=== PATIENT | female | born 1960 | race Caucasian/White ===

== ENCOUNTER 2021-03-03 08:37 | Day surgery (SDC) | payer OTHER ==
[2021-03-01 08:38] LABS: COVID AG,FIA SOURCE NASOPHARYNGEAL
[2021-03-01 08:42] LABS: BASOPHILS % (AUTO) 0.6 % (0.0-2.0); EOSINOPHILS % (AUTO) 3.1 % (1.0-6.0); HEMOGLOBIN 14.2 g/dL (12.0-16.0); LYMPHOCYTES % (AUTO) 31.3 % (22.0-44.0); MEAN CORPUSCULAR HEMOGLOBIN 29.3 pg (26.0-34.0); MEAN CORPUSCULAR HGB CONC 33.1 G/dL (31.0-37.0); MEAN CORPUSCULAR VOLUME 89 fL (80-100); MONOCYTES # (AUTO) 0.4 K/uL (0.1-1.0); MONOCYTES % (AUTO) 6.5 % (2.0-9.0); NEUTROPHILS # (AUTO) 3.8 K/uL (1.8-7.7); NEUTROPHILS % (AUTO) 58.5 % (40.0-70.0); PLATELET COUNT (AUTO) 185 K/uL (150-450); RED BLOOD CELL COUNT(AUTO) 4.86 MIL/uL (4.00-5.20); RED CELL DISTRIBUTION WIDTH 13.8 % (11.5-14.5)
[2021-03-01 08:55] LABS: ANION GAP 6 mmol/L (8-16); CALCIUM, TOTAL 9.4 mg/dL (8.8-10.5); CARBON DIOXIDE 27 mmol/L (22-29); CHLORIDE 105 mmol/L (98-107); CREATININE 0.89 mg/dL (0.60-1.30); GLOMERULAR FILTR. RATE CALC > 60 mL/min (>60); GLUCOSE,RANDOM 98 mg/dL (70-110); POTASSIUM 4.6 mmol/L (3.5-5.1); PROTHROMBIN TIME 10.2 SEC (9.4-11.6); SODIUM SERUM 138 mmol/L (136-145); UREA NITROGEN, BLOOD 20 mg/dL (7-18)
[2021-03-01 09:01] LABS: ALANINE AMINOTRANSFERASE 83 U/L (12-78); ALBUMIN 4.1 g/dL (3.4-5.0); ALKALINE PHOSPHATASE 123 U/L (46-116); ASPARTATE AMINOTRANSFERASE 43 U/L (15-37); BILIRUBIN,TOTAL 0.3 mg/dL (0.1-1.0); TOTAL PROTEIN, SERUM 7.4 g/dL (6.4-8.2)
[~2021-03-03] VITALS: Ht 165.1 cm; Wt 72.7 kg
[~2021-03-03 08:37] MED LIST: AMIT75 PO; ASPI81TA87 PO; CHOL100044 PO; CLOP75TA60 PO; DOXY25TA29 PO; FAMO20 PO; HYDR25TA82 PO; MELA5TAB3 PO; METO50 PO; NITR0.4T52 SL; OMEP20 PO; ROSU20TA73 PO; SODIUM CHLORIDE 0.9% 1,000 ML IV ONE; SUMA100T PO
[2021-03-03] MEDS ORDERED: IOHEXOL 300 MG/ML 50 ML VIAL ONE (08:50)
[2021-03-03] MEDS ORDERED: SODIUM BICARBONATE 50 MEQ/50 ML VIAL ONE (08:50)
[2021-03-03] MEDS ORDERED: IOHEXOL 300 MG/ML 150 ML VIAL ONE (08:50)
[2021-03-03] MEDS ORDERED: IOHEXOL 300 MG/ML 100 ML VIAL ONE (08:50)
[2021-03-03] MEDS ORDERED: LIDOCAINE/PF 1% 30 ML VIAL ONE (08:50)
[2021-03-03] MEDS ORDERED: HEPARIN SODIUM 1000 UNITS/NS 1,000 ML ONE (08:51)
[2021-03-03] MEDS ORDERED: SODIUM CHLORIDE 0.9% 1,000 ML ONE (09:27)
[2021-03-03] MEDS ORDERED: SODIUM CHLORIDE 0.9% 1,000 ML IV ONE (09:45)
[2021-03-03] MEDS ORDERED: VERAPAMIL HCL 2.5 MG/ML 2 ML VIAL ONE (10:04)
[2021-03-03] MEDS ORDERED: NITROGLYCERIN 50 MG/D5% WATER 250 ML ONE (10:04)
[2021-03-03 10:27] VITALS: BP 152/94
[2021-03-03] MEDS ORDERED: FentaNYL CITRATE PF 100 MCG/2 ML VIAL ONE ×2 (10:36→11:16)
[2021-03-03] MEDS ORDERED: MIDAZOLAM HCL 2 MG/2 ML VIAL ONE ×3 (10:36→11:16)
[2021-03-03] MEDS ORDERED: DiphenhydrAMINE HCL 50 MG/ML VIAL ONE (11:02)
[2021-03-03] MEDS ORDERED: IOHEXOL 300 MG/ML 100 ML VIAL IARTER ONE (11:15)
[2021-03-03] MEDS ORDERED: LIDOCAINE 1% 30 ML/SOD BICARB 8.4% 4 ML SQ ONE (11:15)
[2021-03-03] MEDS ORDERED: VERAPAMIL HCL 2.5 MG/ML 2 ML VIAL IARTER ONE (11:15)
[2021-03-03] MEDS ORDERED: MIDAZOLAM HCL 2 MG/2 ML VIAL IVP ONE ×3 (11:15→11:45)
[2021-03-03] MEDS ORDERED: IOHEXOL 300 MG/ML 150 ML VIAL IARTER ONE (11:15)
[2021-03-03] MEDS ORDERED: DiphenhydrAMINE HCL 50 MG/ML VIAL IVP ONE (11:15)
[2021-03-03] MEDS ORDERED: NITROGLYCERIN/D5W 50 MG/250 ML IV BOTTLE IARTER ONE (11:15)
[2021-03-03] MEDS ORDERED: HEPARIN SODIUM 1000 UNITS/NS 1,000 ML IARTER ONE (11:15)
[2021-03-03] MEDS ORDERED: FentaNYL CITRATE PF 100 MCG/2 ML VIAL IVP ONE ×3 (11:15→11:45)
[2021-03-03] MEDS ORDERED: HEPARIN SODIUM,PORCINE 5,000 UNITS/ML VIAL IVP ONE (11:30)
[2021-03-03] MEDS ORDERED: SODIUM CHLORIDE 0.9% 500 ML IV ONE (12:00)
[2021-03-03] MEDS ORDERED: ACETAMINOPHEN 325 MG TABLET PO PRN (12:00)
[2021-03-03] MEDS ORDERED: HYDROCODONE/ACETAMINOPHEN 5-325 MG TABLET PO PRN (12:00)
[2021-03-03 12:10] VITALS: BP 162/79
[2021-03-03] MEDS ORDERED: HYDROCODONE/ACETAMINOPHEN 5-325 MG TABLET ONE (12:34)
== END 2021-03-03 16:05 | disposition home or self-care (01) ==
LOC: CATHLAB 08:37
PROVIDERS: ATTEND Internal Medicine Cardiovascular Disease
DX: R94.39 Abnormal result of other cardiovascular function study (principal); I25.119 Atherosclerotic heart disease of native coronary artery with unspecified angina pectoris; E78.5 Hyperlipidemia, unspecified; J44.9 Chronic obstructive pulmonary disease, unspecified; F17.210 Nicotine dependence, cigarettes, uncomplicated; Z79.02 Long term (current) use of antithrombotics/antiplatelets; Z79.82 Long term (current) use of aspirin; Z79.899 Other long term (current) drug therapy; Z87.01 Personal history of pneumonia (recurrent); Z79.01 Long term (current) use of anticoagulants; Z90.710 Acquired absence of both cervix and uterus; Z98.890 Other specified postprocedural states; Z85.828 Personal history of other malignant neoplasm of skin; Z82.49 Family history of ischemic heart disease and other diseases of the circulatory system; Z91.040 Latex allergy status
CPT/HCPCS: 36415; 80053; 85025; 85610; 85730; 87426; 93005; 93460; 99152; 99153; C9803; J1200; J1644 ×2; J2250; J3010; J3490 ×4; J7030; Q9967 ×2

== ENCOUNTER 2021-07-19 07:44 | Day surgery (SDC) | payer OTHER ==
[2021-07-16 10:40] LABS: COVID AG,FIA SOURCE NASOPHARYNGEAL
[~2021-07-19] VITALS: Ht 165.1 cm; Wt 73.2 kg
[~2021-07-19 07:44] MED LIST changes: -AMIT75 PO; +AMIT75TA55 PO; +CHOL-35 PO; -CHOL100044 PO; -CLOP75TA60 PO; -MELA5TAB3 PO; +MELA5TAB40 PO; -NITR0.4T52 SL; -SODIUM CHLORIDE 0.9% 1,000 ML IV ONE
[2021-07-19] MEDS ORDERED: SODIUM CHLORIDE 0.9% 1,000 ML ONE (08:04)
[2021-07-19] MEDS ORDERED: SODIUM CHLORIDE 0.9% 1,000 ML IV ONE (09:00)
[2021-07-19] MEDS ORDERED: METF-1211 PO (09:24)
[2021-07-19] MEDS ORDERED: LISI-894 PO (09:24)
[2021-07-19] MEDS ORDERED: AMIT-166 PO (10:51)
[2021-07-19] MEDS ORDERED: EZET10TA57 PO (10:51)
[2021-07-19] MEDS ORDERED: CLOP75TA32 PO (10:51)
[2021-07-19] MEDS ORDERED: PROPOFOL 1% 20 ML VIAL IVP ONE (12:00)
[2021-07-19] MEDS ORDERED: LIDOCAINE/PF 2% 5 ML VIAL IM ONE (12:00)
== END 2021-07-19 11:50 | disposition home or self-care (01) ==
LOC: SURGERY 07:44
PROVIDERS: ATTEND Student in an Organized Health Care Education/Training Program
DX: R13.10 Dysphagia, unspecified (principal); K22.70 Barrett's esophagus without dysplasia; K44.9 Diaphragmatic hernia without obstruction or gangrene; K31.89 Other diseases of stomach and duodenum; F17.210 Nicotine dependence, cigarettes, uncomplicated; G89.29 Other chronic pain; F32.9 Major depressive disorder, single episode, unspecified; Z90.710 Acquired absence of both cervix and uterus; Z98.890 Other specified postprocedural states; Z79.899 Other long term (current) drug therapy; Z87.01 Personal history of pneumonia (recurrent)
CPT/HCPCS: 43249; 87426; C9803; J2704; J3490; J7030